=== PATIENT | female | born 1970 | race Caucasian/White ===

== ENCOUNTER → 2023-11-30 10:30 | Outpatient (REF) | payer OTHER, SELFPAY | LOC: CLAB 10:30 | PROVIDERS: ATTENDING PHYSICIAN Specialist | DX: N62 Hypertrophy of breast (principal) | CPT/HCPCS: 88305 ==

== ENCOUNTER → 2024-05-08 13:26 | Outpatient (REF) | payer OTHER, SELFPAY | LOC: HWCARD 13:26 | PROVIDERS: ATTENDING PHYSICIAN Internal Medicine; FAMILY PHYSICIAN Family Medicine | DX: E78.2 Mixed hyperlipidemia (principal) | CPT/HCPCS: 93005 ==

== ENCOUNTER → 2024-11-09 14:05 | Outpatient (REF) | payer OTHER, SELFPAY | LOC: HWEVLT 14:05 | PROVIDERS: ATTENDING PHYSICIAN Radiology Diagnostic Radiology | DX: I83.893 Varicose veins of bilateral lower extremities with other complications (principal) | CPT/HCPCS: 93970 ==

== ENCOUNTER → 2025-03-28 07:46 | Outpatient (REF) | payer OTHER, SELFPAY | LOC: HWEVLT 07:46 | PROVIDERS: ATTENDING PHYSICIAN Radiology Diagnostic Radiology | DX: I83.891 Varicose veins of right lower extremity with other complications (principal) | CPT/HCPCS: 36478; C1769 ==

== ENCOUNTER → 2025-04-17 15:10 | Outpatient (REF) | payer OTHER, SELFPAY | LOC: HWEVLT 15:10 | PROVIDERS: ATTENDING PHYSICIAN Radiology Vascular & Interventional Radiology | DX: I83.891 Varicose veins of right lower extremity with other complications (principal) | CPT/HCPCS: 93971 ==

== ENCOUNTER → 2025-05-10 11:05 | Outpatient (REF) | payer OTHER, SELFPAY ==
[2025-05-10 11:03] LABS: Glucose 88 mg/dl (70-99)
== END ==
LOC: PET 11:05
PROVIDERS: ATTENDING PHYSICIAN Nurse Practitioner Family
DX: R91.1 Solitary pulmonary nodule (principal)
CPT/HCPCS: 36415; 82947